=== PATIENT | female | born 1985 | race Caucasian/White ===

== ENCOUNTER 2018-02-01 03:02 | Inpatient (IN) | payer MEDICAID ==
[2018-02-01 03:32] LABS: URINE BLOOD (Dip) POC Trace-intact (NEGATIVE); URINE KETONES (Dip) POC 1+ (NEGATIVE); URINE LEUKOCYTE EST (Dip) POC Trace (NEGATIVE); URINE NITRITE (Dip) POC Positive (NEGATIVE); URINE TOTAL PROTEIN POC 2+ (NEGATIVE)
[2018-02-01 03:38] LABS: ADD MAN DIFF? NO
[2018-02-01] MEDS: ONDANSETRON 4 MG INJ IV ×5 (03:38→14:54)
[2018-02-01] MEDS: SODIUM CHLORIDE 0.9% 1L BAG IV* (03:38)
[2018-02-01] MEDS: HYDROmorphONE 1 MG/ML SYG IV ×2 (03:38→06:21)
[2018-02-01] MEDS: ACETAMINOPHEN 325 MG TAB PO (03:38)
[2018-02-01 03:57] LABS: INR 0.96; PROTIME 12.9 Sec (11.9-14.9)
[2018-02-01 03:58] LABS: PARTIAL THROMBOPLASTIN TIME 25.6 Sec (25.0-35.0)
[2018-02-01 03:59] LABS: ADD UMIC YES; UR ASCORBIC ACID NEGATIVE (NEGATIVE); UR BACTERIA FEW /HPF (NONE SEEN); UR BILIRUBIN (Dip) NEGATIVE (NEGATIVE); UR BLOOD (Dip) NEGATIVE (NEGATIVE); UR CLARITY SLIGHTLY CLOUDY (CLEAR); UR COLOR YELLOW (YELLOW); UR GLUCOSE (Dip) 3+ mg/dL (NEGATIVE); UR KETONES (Dip) 1+ mg/dL (NEGATIVE); UR LEUKOCYTE ESTERASE (Dip) 3+ Leu/ul (NEGATIVE); UR MUCUS MANY /HPF (NONE SEEN); UR NITRITE (Dip) NEGATIVE (NEGATIVE); UR RBC 13 /HPF (0-5); UR SPECIFIC GRAVITY (Dip) 1.035 (1.003-1.030); UR SQUAMOUS EPITHELIAL CELL FEW /HPF (FEW); UR TOTAL PROTEIN (Dip) 1+ mg/dl (NEGATIVE); UR UROBILINOGEN (Dip) NEGATIVE (NEGATIVE); UR WBC > 182 /HPF (0-5)
[2018-02-01 04:03] LABS: ANION GAP 14 (8-16); BLOOD UREA NITROGEN 11 mg/dl (7-20); CALCIUM 8.9 mg/dl (8.4-10.2); CARBON DIOXIDE 24 mmol/L (21-31); CHLORIDE 106 mmol/L (97-110); GLUCOSE 262 mg/dl (70-220); POTASSIUM 3.9 mmol/L (3.5-5.1); SODIUM 140 mmol/L (135-144)
[2018-02-01 04:04] LABS: LACTIC ACID 1.3 mmol/L (0.5-2.0)
[2018-02-01] MEDS: CEFTRIAXONE 1 GM/50 ML (PMX) 50 ML IVPB (04:05)
[2018-02-01 04:19] LABS: TROPONIN-I < 0.012 ng/ml (0.000-0.120)
[2018-02-01 04:36] LABS: WHITE BLOOD COUNT 23.1 10^3/ul (4.8-10.8)
[2018-02-01 04:36] LABS: BASOPHILS % 0.1 % (0.0-2.0); HEMATOCRIT 39.2 % (37.0-47.0); LYMPHOCYTES # 1.8 10^3/ul (0.8-2.9); LYMPHOCYTES % 7.8 % (15.0-51.0); MEAN CORPUSCULAR HEMOGLOBIN 28.4 pg (29.0-33.0); MEAN CORPUSCULAR HGB CONC 33.2 g/dl (32.0-37.0); MEAN CORPUSCULAR VOLUME 85.8 fl (82.0-101.0); MEAN PLATELET VOLUME 11.3 fl (7.4-10.4); MONOCYTE # 1.3 10^3/ul (0.3-0.9); MONOCYTES % 5.5 % (0.0-11.0); NEUTROPHIL # 19.8 10^3/ul (1.6-7.5); NEUTROPHILS % 86.1 % (39.0-77.0); PLATELET COUNT 346 10^3/UL (140-415); RED BLOOD COUNT 4.57 10^6/ul (4.20-5.40); RED CELL DISTRIBUTION WIDTH 12.7 % (11.5-14.5)
[2018-02-01] MEDS: PIPER-TAZO 3.375 GM IV (PMX) 100 ML IVPB ×5 (05:44→23:41)
[2018-02-01 06:07] LABS: LACTIC ACID 0.8 mmol/L (0.5-2.0)
[2018-02-01] MEDS: SOD CHLORIDE 0.9% 1,000 ML IV ×4 (06:47→20:39)
[2018-02-01] MEDS ORDERED: ACETAMINOPHEN 1000 MG/100 ML IVPB (07:00)
[2018-02-01] MEDS ORDERED: LIDOCAINE 2% (SDV) 5 ML INJ (07:00)
[2018-02-01] MEDS ORDERED: NACL 0.9% 3 ML SYG IV (07:00)
[2018-02-01] MEDS: INSULIN ASPART [NOVOLOG] 3 ML PEN SC ×6 (07:56→20:49)
[2018-02-01] MEDS ORDERED: GLUCAGON 1 MG INJ IM (08:00)
[2018-02-01] MEDS ORDERED: GLUCOSE GEL 15 GRAM TUBE BUCCAL (08:00)
[2018-02-01] MEDS: INSULIN GLARGINE [LANTus] (100 UNITS/ML) SYG SC ×2 (08:00→13:05)
[2018-02-01] MEDS ORDERED: DEXTROSE 50% 50 ML SYRINGE IV ×2 (08:00)
[2018-02-01] MEDS ORDERED: GLUCOSE GEL 15 GRAM TUBE PO ×2 (08:00)
[2018-02-01 09:46] LABS: LACTIC ACID 0.8 mmol/L (0.5-2.0)
[2018-02-01 10:39] LABS: HEMOGLOBIN A1C 11.6 % (0-5.9)
[2018-02-01] MEDS: morphine 2 MG INJ IV (14:52)
[2018-02-01] MEDS ORDERED: LIDOCAINE 1%/EPI 30 ML INJ (17:19)
[2018-02-01] MEDS ORDERED: PROPOFOL 20 ML (17:24)
[2018-02-01] MEDS ORDERED: ROCURONIUM 50 MG INJ (17:25)
[2018-02-01] MEDS ORDERED: IBUPROFEN 600 MG TAB PO (17:30)
[2018-02-01] MEDS ORDERED: ACETAMINOPHEN 325 MG TAB PO (17:30)
[2018-02-01] MEDS ORDERED: morphine 2 MG INJ IV (17:30)
[2018-02-01] MEDS: D5-NS + KCL 20 MEQ 1,000 ML IV (17:30)
[2018-02-01] MEDS ORDERED: ONDANSETRON 4 MG INJ IV ×2 (17:30→18:30)
[2018-02-01] MEDS ORDERED: DEXAMETHASONE 4 MG/ML 1 ML INJ (17:50)
[2018-02-01] MEDS ORDERED: ONDANSETRON 4 MG INJ (17:50)
[2018-02-01] MEDS: BUPIVACAINE 0.25% (MPF) 30 ML INJ (17:57)
[2018-02-01] MEDS: LIDOCAINE 1% (MPF) 30 ML INJ (17:57)
[2018-02-01] MEDS ORDERED: SUGAMMADEX SODIUM 200 MG/2 ML VIAL IV (18:00)
[2018-02-01] MEDS ORDERED: hydrALAzine 20 MG INJ IV (18:30)
[2018-02-01] MEDS ORDERED: EPHEDrine SULFATE 50 MG/5 ML SYG IV (18:30)
[2018-02-01] MEDS ORDERED: ALBUTEROL 0.083% (NEB) 2.5 MG/3 ML AMP HHN (18:30)
[2018-02-01] MEDS ORDERED: LABETALOL HCL 20MG INJ IV (18:30)
[2018-02-01] MEDS ORDERED: HYDROmorphONE 1 MG/5 ML IV SYRINGE IV ×3 (18:30)
[2018-02-01] MEDS ORDERED: FENTAnyl 50 MCG/ML VIAL IV ×3 (18:30)
[2018-02-01] MEDS ORDERED: MIDAZOLAM 1 MG/ML 2 ML INJ IV (18:30)
[2018-02-01] MEDS ORDERED: OXYCODONE/ACETAMINOPHEN (5/325) TAB PO ×2 (18:30)
[2018-02-01] MEDS ORDERED: DIPHENHYDRAMINE 50 MG INJ IV (18:30)
[2018-02-01] MEDS ORDERED: MEPERIDINE 25 MG INJ IV (18:30)
[2018-02-01] MEDS ORDERED: KETOROLAC 30 MG INJ IV (18:30)
[2018-02-01] MEDS ORDERED: METOCLOPRAMIDE 10 MG INJ IV (18:30)
[2018-02-01] MEDS ORDERED: VITAMIN A & D 5 GM OINT PACKET TOP (19:58)
[2018-02-02] MEDS: ACCU-CHEK XX (01:53)
[2018-02-02 05:23] LABS: ADD MAN DIFF? NO
[2018-02-02 05:33] LABS: WHITE BLOOD COUNT 12.2 10^3/ul (4.8-10.8)
[2018-02-02 05:33] LABS: BASOPHILS % 0.1 % (0.0-2.0); HEMATOCRIT 33.5 % (37.0-47.0); HEMOGLOBIN 10.8 g/dl (12.0-16.0); LYMPHOCYTES # 1.2 10^3/ul (0.8-2.9); LYMPHOCYTES % 9.6 % (15.0-51.0); MEAN CORPUSCULAR HEMOGLOBIN 28.9 pg (29.0-33.0); MEAN CORPUSCULAR HGB CONC 32.2 g/dl (32.0-37.0); MEAN CORPUSCULAR VOLUME 89.6 fl (82.0-101.0); MEAN PLATELET VOLUME 11.5 fl (7.4-10.4); MONOCYTE # 0.1 10^3/ul (0.3-0.9); MONOCYTES % 1.1 % (0.0-11.0); NEUTROPHIL # 10.8 10^3/ul (1.6-7.5); NEUTROPHILS % 88.9 % (39.0-77.0); PLATELET COUNT 279 10^3/UL (140-415); RED BLOOD COUNT 3.74 10^6/ul (4.20-5.40); RED CELL DISTRIBUTION WIDTH 12.7 % (11.5-14.5)
[2018-02-02] MEDS: PIPER-TAZO 3.375 GM IV (PMX) 100 ML IVPB ×2 (05:42→12:11)
[2018-02-02 06:04] LABS: ANION GAP 16 (8-16); BLOOD UREA NITROGEN 7 mg/dl (7-20); CALCIUM 8.2 mg/dl (8.4-10.2); CARBON DIOXIDE 18 mmol/L (21-31); CHLORIDE 107 mmol/L (97-110); CREATININE 0.37 mg/dl (0.44-1.00); GLUCOSE 204 mg/dl (70-220); POTASSIUM 4.5 mmol/L (3.5-5.1); SODIUM 136 mmol/L (135-144)
[2018-02-02 06:07] LABS: ALANINE AMINOTRANSFERASE 49 IU/L (13-69); ALBUMIN 3.1 g/dl (3.3-4.9); ALBUMIN/GLOBULIN RATIO 0.93; ALKALINE PHOSPHATASE 92 IU/L (42-121); ANION GAP 14 (8-16); ASPARTATE AMINO TRANSFERASE 39 IU/L (15-46); BILIRUBIN,INDIRECT 0.3 mg/dl (0-1.1); BILIRUBIN,TOTAL 0.3 mg/dl (0.2-1.3); BLOOD UREA NITROGEN 6 mg/dl (7-20); CARBON DIOXIDE 20 mmol/L (21-31); CHLORIDE 107 mmol/L (97-110); CREATININE 0.37 mg/dl (0.44-1.00); GLUCOSE 209 mg/dl (70-220); MAGNESIUM 1.8 mg/dl (1.7-2.5); PHOSPHORUS 3.6 mg/dl (2.5-4.9); POTASSIUM 4.2 mmol/L (3.5-5.1); SODIUM 137 mmol/L (135-144); TOTAL PROTEIN 6.4 g/dl (6.1-8.1)
[2018-02-02] MEDS: SOD CHLORIDE 0.9% 1,000 ML IV (06:30)
[2018-02-02] MEDS: ENOXAPARIN 40 MG/0.4 ML SYG SC (08:44)
[2018-02-02] MEDS: INSULIN GLARGINE [LANTus] (100 UNITS/ML) SYG SC (08:45)
[2018-02-02] MEDS: INSULIN ASPART [NOVOLOG] 3 ML PEN SC ×2 (08:46→12:52)
[2018-02-02] MEDS: HYDROCODONE/APAP (5/325) TAB PO (10:45)
[2018-02-02 11:21] LABS: ADD UMIC NO; UR ASCORBIC ACID NEGATIVE (NEGATIVE); UR BILIRUBIN (Dip) NEGATIVE (NEGATIVE); UR BLOOD (Dip) NEGATIVE (NEGATIVE); UR CLARITY CLEAR (CLEAR); UR COLOR STRAW (YELLOW); UR GLUCOSE (Dip) 3+ mg/dL (NEGATIVE); UR KETONES (Dip) 1+ mg/dL (NEGATIVE); UR LEUKOCYTE ESTERASE (Dip) NEGATIVE Leu/ul (NEGATIVE); UR NITRITE (Dip) NEGATIVE (NEGATIVE); UR SPECIFIC GRAVITY (Dip) 1.003 (1.003-1.030); UR TOTAL PROTEIN (Dip) NEGATIVE (NEGATIVE); UR UROBILINOGEN (Dip) NEGATIVE (NEGATIVE)
== END 2018-02-02 15:45 | disposition home or self-care (01) | DRG 342 ==
LOC: E/R 03:02 → MS1 05:22
PROC: 0DTJ4ZZ Resection of Appendix, Percutaneous Endoscopic Approach (ICD-10-PCS; principal; 2018-02-01 17:00)
DX: K35.80 Unspecified acute appendicitis (principal); N39.0 Urinary tract infection, site not specified; E11.649 Type 2 diabetes mellitus with hypoglycemia without coma; B96.20 Unspecified Escherichia coli [E. coli] as the cause of diseases classified elsewhere
CPT/HCPCS: 36415; 71045; 74176; 80048; 80053; 81001; 81003; 81025; 82962; 83036; 83605; 83735; 84100; 84484; 84703; 85025; 85610; 85730; 87040; 87086; 88304; 93005; 96374; 96375; 99285-25

== ENCOUNTER 2018-06-04 18:05 | Emergency (ER) | payer SELFPAY, MEDICAID | END 2018-06-04 19:05 | disposition left against medical advice (07) | LOC: FTE 18:05 | DX: Z53.21 Procedure and treatment not carried out due to patient leaving prior to being seen by health care provider (principal) ==